=== PATIENT | male | born 2000 | race Caucasian/White ===

== ENCOUNTER 2021-04-17 08:52 | Emergency (ER) | payer OTHER, SELFPAY ==
[2021-04-17 08:54] VITALS: BP 124/96; PULSE 90; RESP 16; TEMP 36.4; O2SAT 100; BMI 30.3
--- NOTE | 2021-04-17 09:09 | EDS_ITS ---
HPI History of Present Illness Chief Complaint: Abd Pain Informant: patient Onset/Context/Timing Onset: Today Current Severity: 09/05 Maximum Severity: 05/06 Narrative Narrative: Patient presents with intermittent right upper quadrant pain. Has had a total of 5 episodes, most recent being this morning. Today's episode lasted approximately 5 hours and is currently significantly improved. Patient states he will get sudden sharp squeezing pain in the right upper quadrant. He has nausea but no vomiting. No fever or chills. He has never been worked up for this previously. [facility] Medical History Migraines Home Medications rizatriptan 10 mg PO X1 PRN 04/17/21 [History Last Taken Unknown] Allergy/AdvReac Type Severity Reaction Status Date / Time No Known Allergies Allergy Verified 04/17/21 08:54 Social History Smoking Status: Never smoker ROS ROS ED Constitutional Constitutional ED: Denies chills or fever(s) Eyes Eyes: Denies change in vision ENT ENT ED: Denies sore throat Cardiovascular Cardiovascular: Denies chest pain Respiratory/Chest Respiratory/Chest: Denies cough or dyspnea Gastrointestinal Gastrointestinal: Reports abdominal pain and nausea; Denies diarrhea or vomiting Genitourinary Genitourinary ED: Denies dysuria Musculoskeletal Musculoskeletal: Denies back pain Integumentary Denies rash Neurologic Neurologic: Denies headache(s) or weakness Psychiatric Psychiatric: Denies anxiety or depression Allergic/Immunologic Allergic/Immunologic ED: Denies urticaria EXAM Physical Exam Const Vital Signs: 04/17/21 08:54 Temperature 97.6 F L Temperature Source Temporal Pulse Rate 90 Respiratory Rate 16 Blood Pressure 124/96 H Blood Pressure Mean 105 Pulse Ox 100 Oxygen Delivery Method Room Air Positive well nourished and well developed General Appearance ED: well developed HEENT Reports normocephalic and head/scalp atraumatic Eyes PERRL and EOMs intact bilaterally Neck supple Chest Wall inspection of chest normal and palpation of chest normal Resp normal respiratory effort and clear to auscultation bilaterally Cardio regular rate and regular rhythm GI Palpation: soft and tender RUQ (Minimal tenderness right upper quadrant. No guarding or rebound.) Extremity normal to inspection Neuro oriented x3 and no sensory deficits noted Sensorium / Orientation: alert Motor Exam: strength 5/5 throughout Psych mental status grossly normal Skin no rashes or lesions noted MDM MDM MDM Narrative Medical decision making narrative: Patient declined anything for pain while here. Lab work obtained. Lab Data Attestation: I reviewed the patient's lab results. Labs: Laboratory Results - last 24 hr 04/17/21 04/17/21 10:00 10:00 WBC 7.9 RBC 5.52 Hgb 16.1 Hct 48.2 MCV 87.3 MCH 29.2 MCHC 33.4 RDW Std Deviation 38.8 RDW Coeff of Cris 12.1 Plt Count 279 MPV 10.3 Immature Gran % (Auto) 0.300 Neut % (Auto) 68.1 Lymph % (Auto) 22.0 [place] % (Auto) 6.5 Eos % (Auto) 2.5 Baso % (Auto) 0.6 Absolute Neuts (auto) 5.4 Absolute Lymphs (auto) 1.73 Nucleated RBC % 0 Sodium 142 Potassium 3.8 Chloride 108 H Carbon Dioxide 28.0 Anion Gap 6 BUN 11 Creatinine 0.91 Estim Creat Clear Calc 147.56 Est GFR (MDRD) Af Amer 137 Est GFR (MDRD) Non-Af 113 BUN/Creatinine Ratio 12.0 Glucose 93 Calcium 9.3 Total Bilirubin 0.40 Direct Bilirubin 0.12 AST 10 L ALT 32 Alkaline Phosphatase 74 Total Protein 7.9 Albumin 4.8 Globulin 3.1 Lipase 60 L Treatment and Re-Evaluation Comments:: Labs are unremarkable and patient's pain has resolved at this time. I do not feel that CT imaging is warranted and do not expose him to radiation unnecessarily. I did speak with Dr. Giron, on-call for the patient's PCP. They will help arrange an outpatient ultrasound. Patient was given return instructions. Discharge Plan Triage Chief Complaint: Abd Pain ED Provider: Ginette Quesada Dx/Rx/DC Orders Clinical Impression: Abdominal pain Instructions: ED Abdominal Pain Unkn Cause Male... Prescriptions: No Action rizatriptan 10 mg tablet 10 mg PO X1 PRN (Reason: Headache) RF: 0 Primary Care Provider: Jonny Smith Referrals: Jonny Smith MD [Primary Care Provider] - 1-2 Weeks Disposition Disposition: Home, Self Care
[2021-04-17 10:12] LABS: Absolute Lymphocyte Count 1.73 X10^3/uL (0.83-4.51); Absolute Neutrophil Count 5.4 X10^3/uL (2.0-7.7); Basophil# 0.05 X10^3/uL; Basophil% 0.6 % (0-1); Eosinophils% 2.5 % (0-5); Hematocrit 48.2 % (40-54); Hemoglobin 16.1 g/dL (13.0-16.5); Lymphocyte # 1.73 X10^3/ul (0.83-4.51); Mean Corp Hgb Conc 33.4 g/dL (32-36); Mean Corpuscular Hgb 29.2 pg (27.0-32.0); Mean Corpuscular Volume 87.3 fL (80-94); Mean Platelet Vol. 10.3 fl (6.2-12.0); Monocyte# 0.51 X10^3/uL; Monocyte% 6.5 % (0-10); NRBC Flagged by Analyzer 0 % (0-5); Neutrophil # 5.35 X10^3/uL (2.7-7.7); Neutrophil % 68.1 % (47-70); Platelet Count 279 K/mm3 (150-450); RBC Distribution Width CV 12.1 % (11.6-14.6); RBC Distribution Width SD 38.8 fl (35.1-43.9); Red Blood Count 5.52 M/mm3 (4.6-6.2); White Blood Count 7.9 K/mm3 (4.4-11.0)
[2021-04-17 10:26] LABS: AST(SGOT) 10 U/L (15-37); Alanine Aminotransfer ALT/SGPT 32 U/L (16-61); Albumin, Serum 4.8 g/dL (3.2-5.0); Alkaline Phosphatase 74 U/L (45-117); Anion Gap 6 (5-15); BUN 11 mg/dL (7-18); Bilirubin, Direct 0.12 mg/dL (0.00-0.30); Calcium,Total 9.3 mg/dL (8.5-10.1); Chloride 108 mmol/L (98-107); Creatinine, Serum 0.91 mg/dL (0.70-1.30); EST Glomerular Filtration Rate 113 mL/min (>60); Est Glom Filt Rate - Afr Amer 137 mL/min (>60); Estimated Creatinine Clearance 147.56 ml/min; Globulin 3.1 g/dL (2.2-4.2); Glucose 93 mg/dL (74-106); Lipase 60 U/L (73-393); Potassium 3.8 mmol/L (3.5-5.1); Protein, Total 7.9 g/dL (6.4-8.2); Sodium Level 142 mmol/L (136-145)
[2021-04-17 12:01] VITALS: PULSE 88; RESP 17; O2SAT 100
== END 2021-04-17 12:02 | disposition home or self-care (01) ==
PROVIDERS: Emergency Provider Emergency Medicine; PCP Family Medicine
DX: R10.11 Right upper quadrant pain (principal); R11.0 Nausea; G43.909 Migraine, unspecified, not intractable, without status migrainosus; Z79.899 Other long term (current) drug therapy
CPT/HCPCS: 80048; 80076; 83690; 85025; 99283; A4216

== ENCOUNTER 2022-12-25 21:05 | Emergency (ER) | payer BC, SELFPAY ==
[2022-12-25 21:06] VITALS: BP 144/95; PULSE 100; RESP 14; TEMP 36.8; O2SAT 98; BMI 31.3
--- NOTE | 2022-12-25 22:19 | CT_ITS ---
EXAM: CT ABDOMEN AND PELVIS WITH INTRAVENOUS CONTRAST CLINICAL INDICATION: pain, rlq TECHNIQUE: Helically acquired images were obtained of the abdomen and pelvis with intravenous contrast. This CT exam was performed using one or more of the following dose reduction techniques: automated exposure control, adjustment of the mA and/or kV according to patient size, and/or use of iterative reconstruction technique. CONTRAST: IV 100mL Isovue-370 COMPARISON: No relevant prior studies available. FINDINGS: LOWER THORAX: Unremarkable. Lung bases are clear. No cardiomegaly. No significant pericardial effusion. ABDOMEN: LIVER: Unremarkable. Homogeneous. No focal mass. GALLBLADDER AND BILE DUCTS: Unremarkable. No calcified gallstones. No gallbladder distention or wall edema. No intra- or extrahepatic biliary ductal dilation. PANCREAS: Unremarkable. No focal cystic or solid mass. SPLEEN: Unremarkable. Normal size without focal cystic or solid mass. ADRENALS: Unremarkable. No nodules. KIDNEYS AND URETERS: Unremarkable. Normal renal size and position. No hydronephrosis. Normal enhancement of the renal parenchyma bilaterally. STOMACH AND BOWEL: Unremarkable. No stomach or bowel distention. No focal inflammatory change. PELVIS: APPENDIX: The appendix is normal. BLADDER: Unremarkable. REPRODUCTIVE: Unremarkable as visualized. No mass. ABDOMEN and PELVIS: INTRAPERITONEAL SPACE: Unremarkable. No ascites or other fluid collection. No free air. BONES/JOINTS: Unremarkable. No suspicious lytic or blastic abnormality. SOFT TISSUES: Unremarkable. No discrete abdominal or pelvic wall hernia. VASCULATURE: Unremarkable. Abdominal aorta is non-dilated. LYMPH NODES: Unremarkable. No enlarged lymph nodes. CT/Abdomen/Pelvis W IV Cont ONLY IMPRESSION: No acute findings in the abdomen or pelvis. Electronically Signed: Perez Tang MD at 23:58 EDT ,
--- NOTE | 2022-12-25 22:20 | ED.VIS.GI ---
HPI HPI - GI History of Present Illness Chief Complaint: GI Bleed Narrative Narrative: 22-year-old male who denies significant past medical history presents with his mother because of rectal bleeding that began 3 to 4 hours ago. He had a bowel movement, then noticed bright red blood per rectum. He states that his stool was kind of loose. He states he does not take blood thinners. No recent NSAIDs or aspirin. He felt lightheaded when it happened, but that has resolved. He denies chest pain or shortness of breath. He is having lower abdominal pain, mainly on the right. No fevers or chills. No exacerbating or alleviating factors to his rectal bleeding. His mother is here and is concerned because she states his relative of rectal carcinoma. [facility] Medical History Migraines Home Medications rizatriptan 10 mg tablet 10 mg PO X1 PRN Headache 04/17/21 [History Last Taken Unknown] hydrocortisone acetate 25 mg rectal suppository (Anusol-HC) 25 mg SD DAILY #12 ea 12/25/22 [Rx Last Taken Unknown] Allergy/AdvReac Type Severity Reaction Status Date / Time No Known Allergies Allergy Verified 12/25/22 21:06 Social History Smoking Status: Never smoker ROS ROS ED ROS Narrative Constitutional: No fever, no chills. HEENT: No sore throat. No neck pain. No loss of vision. No rhinorrhea. Cardiovascular: No chest pain. No palpitations. No pedal edema. Respiratory: No cough, no shortness of breath. Abdominal: Right lower quadrant abdominal pain. No nausea. No vomiting. Bright red blood per rectum. Genitourinary: No dysuria. No hematuria. Musculoskeletal: No myalgias. No arthralgias. Neurologic: No headaches. No dizziness. No lightheadedness-resolved. Skin: No rash. No change in color. Psychiatric: No depression. No anxiety. EXAM Physical Exam Narrative Exam Narrative: Afebrile. Vital signs noted. HEENT: Normocephalic. Atraumatic. PERRL, EOMI. Neck soft and supple. No point tenderness or step off. Cardiovascular: Regular rate and rhythm. No murmurs, rubs, or gallops appreciated. Respiratory: No tachypnea. Lungs clear to auscultation bilaterally. Gastrointestinal: Abdomen soft, tenderness right lower quadrant with deep palpation, with normoactive bowel sounds. No rebound or guarding. Rectal examination declined by patient. Neurological: Awake. Alert. Nonfocal, nonlateralizing. Skin: No rash. Normal color. No pallor. Musculoskeletal: No pedal edema. Full range of motion extremities. Const Vital Signs: 12/25/22 21:06 12/25/22 23:19 Temperature 98.2 F Temperature Source Temporal Pulse Rate 100 Pulse Rate [Lying] 74 Pulse Rate [Sitting (for 1 minute prior to obtaining)] 69 Pulse Rate [Standing (for 1 minute prior to obtaining)] 94 Respiratory Rate 14 Blood Pressure 144/95 H Blood Pressure [Lying] 129/86 H Blood Pressure [Sitting (for 1 minute prior to obtaining)] 138/76 H Blood Pressure [Standing (for 1 minute prior to obtaining)] 135/69 H Blood Pressure Mean 111 Blood Pressure Mean [Lying] 100 Blood Pressure Mean [Sitting (for 1 minute prior to obtaining)] 96 Blood Pressure Mean [Standing (for 1 minute prior to obtaining)] 91 Pulse Ox 98 Oxygen Delivery Method Room Air MDM MDM MDM Narrative Medical decision making narrative: In the differential diagnosis is rectal bleeding from internal hemorrhoid versus AV malformation, versus diverticular bleed. Given his pain in the right lower quadrant, there is low concern for appendicitis based on his examination, and I do not feel that that would be the cause of his bright red blood per rectum. Orthostatics will be obtained. I will obtain a CBC to rule out profound anemia requiring transfusion, but this is also lower on the differential because of his clinical exam without pallor. With her concern for rectal carcinoma, CT will be obtained also to rule out mass. However, patient has not described thin stool recently. I reviewed the patient's laboratory work, he has a normal white count of 6.0, hemoglobin actually hemoconcentrated at 16.6 with hematocrit 49.4, platelet count normal at 295. His electrolyte panel is grossly unremarkable with a normal BUN of 9 and a creatinine of 0.98. Glucose appropriately elevated at 97 with normal anion gap of 7. Orthostatics obtained and reviewed and are negative for tachycardia or significant drop in his systolic blood pressure. I reviewed his CT imaging and see no acute process, I reviewed the radiology report. There is no evidence of acute finding, no acute infiltrate or abdominal inflammatory change, appendix appears normal, no obstruction. I do think that his rectal bleeding may be secondary to an internal hemorrhoid. He will be given a prescription for Anusol suppositories with hydrocortisone and referred to Dr. Zacarias for further work-up. I do feel that he has stable GI bleeding/rectal bleeding and can be discharged with follow-up. Return instructions to the emergency department were reviewed. Disposition is discharged home in stable condition. History & Record Review Discussion w/independent historian: Patient and Family Additional record(s) reviewed:: Prior ED visit Lab Data Attestation: I reviewed the patient's lab results. Labs: Laboratory Results - last 24 hr 12/25/22 12/25/22 22:42 22:42 WBC 6.0 RBC 5.57 Hgb 16.6 H Hct 49.4 MCV 88.7 MCH 29.8 MCHC 33.6 RDW Std Deviation 39.3 RDW Coeff of Cris 12.0 Plt Count 295 MPV 10.8 Immature Gran % (Auto) 0.300 Neut % (Auto) 48.6 Lymph % (Auto) 40.4 [place] % (Auto) 7.2 Eos % (Auto) 2.8 Baso % (Auto) 0.7 Absolute Neuts (auto) 2.9 Absolute Lymphs (auto) 2.41 Nucleated RBC % 0 Sodium 140 Potassium 4.3 Chloride 107 Carbon Dioxide 26.0 Anion Gap 7 BUN 9 Creatinine 0.98 Estim Creat Clear Calc 134.75 Est GFR (MDRD) Af Amer 124 Est GFR (MDRD) Non-Af 102 BUN/Creatinine Ratio 9.2 L Glucose 97 Calcium 9.3 Total Bilirubin 0.30 AST 15 ALT 46 Alkaline Phosphatase 68 Total Protein 7.6 Albumin 4.5 Globulin 3.1 Albumin/Globulin Ratio 1.5 Radiography Diagnostic Testing: Clinical Impression(s) from Imaging Studies Abdomen/Pelvis CT 12/25/22 22:19 IMPRESSION: No acute findings in the abdomen or pelvis. Electronically Signed: Perez Tang MD at 23:58 EDT , Discharge Plan Triage Chief Complaint: GI Bleed ED Provider: Neymar Chan Dx/Rx/DC Orders Clinical Impression: Acute lower GI bleeding, Abdominal pain Instructions: ED Lower GI Bleeding (Stable) Prescriptions: New hydrocortisone acetate [Anusol-HC] 25 mg suppository 25 mg SD DAILY Qty: 12 0RF No Action rizatriptan 10 mg tablet 10 mg PO X1 PRN (Reason: Headache) Label Comments: take 1 tablet by mouth AT ONSET OF HEADACHE may repeat ONCE in 2 hours IF headache PERSISTS Primary Care Provider: Jonny Smith Referrals: Jeremy Zacarias DO [Med Staff - Active Staff] - As soon as possible Jonny Smith MD [[facility]] - Activity Restrictions/Additional Instructions: Return with increased bleeding, new or worsening symptoms. Disposition Disposition: Home, Self Care
[2022-12-25] MEDS: 0.9% Normal Saline 1,000 ML 1000 ML IV (22:41)
[2022-12-25 23:12] LABS: ALB/GLOB Ratio 1.5 RATIO (0.9-2.4); AST(SGOT) 15 U/L (15-37); Alanine Aminotransfer ALT/SGPT 46 U/L (16-61); Albumin, Serum 4.5 g/dL (3.2-5.0); Alkaline Phosphatase 68 U/L (45-117); Anion Gap 7 (5-15); BUN 9 mg/dL (7-18); BUN/Creat Ratio 9.2 RATIO (10-20); Calcium,Total 9.3 mg/dL (8.5-10.1); Chloride 107 mmol/L (98-107); Creatinine, Serum 0.98 mg/dL (0.70-1.30); EST Glomerular Filtration Rate 102 mL/min (>60); Est Glom Filt Rate - Afr Amer 124 mL/min (>60); Estimated Creatinine Clearance 134.75 ml/min; Globulin 3.1 g/dL (2.2-4.2); Glucose 97 mg/dL (74-106); Potassium 4.3 mmol/L (3.5-5.1); Protein, Total 7.6 g/dL (6.4-8.2); Sodium Level 140 mmol/L (136-145)
[2022-12-25 23:15] LABS: Absolute Lymphocyte Count 2.41 X10^3/uL (0.83-4.51); Absolute Neutrophil Count 2.9 X10^3/uL (2.0-7.7); Basophil# 0.04 X10^3/uL; Basophil% 0.7 % (0-1); Eosinophil# 0.17 X10^3/uL; Eosinophils% 2.8 % (0-5); Hematocrit 49.4 % (40-54); Hemoglobin 16.6 g/dL (13.0-16.5); Lymphocyte # 2.41 X10^3/ul (0.83-4.51); Lymphocyte % 40.4 % (19-41); Mean Corp Hgb Conc 33.6 g/dL (32-36); Mean Corpuscular Hgb 29.8 pg (27.0-32.0); Mean Corpuscular Volume 88.7 fL (80-94); Mean Platelet Vol. 10.8 fl (6.2-12.0); Monocyte# 0.43 X10^3/uL; Monocyte% 7.2 % (0-10); NRBC Flagged by Analyzer 0 % (0-5); Neutrophil % 48.6 % (47-70); Platelet Count 295 K/mm3 (150-450); RBC Distribution Width SD 39.3 fl (35.1-43.9); Red Blood Count 5.57 M/mm3 (4.6-6.2)
[2022-12-25 23:19] VITALS: BP 129/86; BP 135/69; BP 138/76; PULSE 69; PULSE 74; PULSE 94
[2022-12-26 00:09] VITALS: BP 134/79; PULSE 68; RESP 17; O2SAT 96
== END 2022-12-26 00:10 | disposition home or self-care (01) ==
PROVIDERS: Emergency Provider Emergency Medicine; PCP Family Medicine; Visit Provider Emergency Medicine
DX: K92.2 Gastrointestinal hemorrhage, unspecified (principal); R10.31 Right lower quadrant pain
CPT/HCPCS: 74177; 80053; 85025; 96360; 99284; J7030; A4216

== ENCOUNTER 2023-12-17 06:18 | Observation (INO) | payer BC, SELFPAY ==
[2023-12-17] VITALS (10 sets, daily range): BP systolic 128–159; BP diastolic 76–98; PULSE 82–97; RESP 15–20; TEMP 36.4–36.9; O2SAT 94–99; BMI 32.3; BMI 32.1
--- NOTE | 2023-12-17 06:40 | US_ITS ---
STUDY: ABDOMINAL ULTRASOUND - RIGHT UPPER QUADRANT REASON FOR VISIT: Male, 23 years old . Right upper quadrant pain. Vomiting. TECHNIQUE: Ultrasound evaluation of the right upper quadrant was performed with real-time and static ye-scale imaging. TECHNICAL QUALITY: Adequate. COMPARISON: None. FINDINGS: Liver: The liver measures 14.9 cm. There is normal echogenicity of the liver. The bile ducts are within normal limits. There is hepatic color flow. The direction of portal flow is hepatopetal. There is no demonstrated mass lesion. Gallbladder: Normal distended gallbladder. The gallbladder wall measures 3.1 mm. There is a negative sonographic Chen''s sign. There is no pericholecystic fluid. There are multiple echogenic structures within the gallbladder, consistent with multiple gallstones. Common Bile Duct (C.B.D.): The common bile duct measures 3.7 mm. Pancreas: Normal size of the head of the pancreas. The body and tail portions were obscured with overlying bowel gas. There is normal echogenicity of the pancreas. There is no demonstrated pancreatic mass or cyst. Right Kidney: Normal size of the right kidney. The right kidney measures 11.5 cm x 5.5 cm x 5.3 cm. Normal renal cortex. The right cortex measures 2.1 cm. There is no demonstrated renal mass or cyst. There is no right hydronephrosis. US/Gallbladder IMPRESSION: Multiple gallstones. Electronically Signed: Uvaldo Ibanez MD at 8:55 EDT ,
--- NOTE | 2023-12-17 06:41 | EX.ED.DYSGE1 ---
HPI History of Present Illness Chief Complaint: Abd Pain Informant: patient Narrative Narrative: Patient is a 23-year-old male who states he was diagnosed with cholelithiasis and gallbladder polyps a few years ago. He states he follows with a general surgeon and as he only had 1 bout of biliary colic decided to not have his gallbladder removed. He states he has been doing well but last night while at rest around 10 PM he developed pain in the right upper quadrant with some radiation to the midline of his abdomen that caused nausea and 1 bout of vomiting. He states this pain feels similar nature to his previous gallbladder attack. He states the pain is lasted all night without any type of symptom improvement and secondary to his he comes in for evaluation [facility] Medical History Gall bladder polyp Gallstone Migraines Home Medications NK 12/17/23 [History Last Taken Unknown] Allergy/AdvReac Type Severity Reaction Status Date / Time Sulfa (Sulfonamide Allergy Severe Hives Verified 12/17/23 06:19 Antibiotics) Social History Smoking Status: Never smoker ROS ROS ED Constitutional Constitutional ED: Denies chills or fever(s) Eyes Eyes: Denies change in vision ENT ENT ED: Denies sore throat Cardiovascular Cardiovascular: Denies chest pain Respiratory/Chest Respiratory/Chest: Denies cough or dyspnea Gastrointestinal Gastrointestinal: Reports abdominal pain, nausea and vomiting; Denies diarrhea Genitourinary Genitourinary ED: Denies dysuria Musculoskeletal Musculoskeletal: Reports back pain; Denies myalgias Integumentary Denies rash Neurologic Neurologic: Denies headache(s) Hematologic/Lymphatic Hematologic/Lymphatic: Denies easy bleeding or easy bruising EXAM Physical Exam Const Vital Signs: 12/17/23 06:19 12/17/23 06:21 Temperature 97.7 F L 97.7 F L Temperature Source Temporal Temporal Pulse Rate 97 95 Respiratory Rate 20 H 20 H Blood Pressure 159/98 H 159/98 H Blood Pressure Mean 118 118 Pulse Ox 97 97 Oxygen Delivery Method Room Air Room Air Positive well nourished and well developed General Appearance ED: well developed; Negative for pallor HEENT Reports moist mucous membranes HEENT Narrative: No tongue or lip swelling no oral lesions no airway edema or compromise No signs of infection noted in the posterior pharynx Eyes PERRL and EOMs intact bilaterally General Eye ED: Negative for pale conjunctiva or scleral icterus Neck supple Neck Narrative: No nuchal rigidity or meningeal signs noted Resp normal respiratory effort and clear to auscultation bilaterally Cardio regular rate and regular rhythm Rate: other Other Details: Heart is regular rate and rhythm without murmurs rubs or gallops Radial and carotid pulses are equal and symmetric GI non-distended GI Narrative: Abdomen is soft and nondistended with normal active bowel sounds. There is pain on palpation in the midepigastric and right upper quadrant region but greatest in the right upper quadrant region. However Chen sign is negative No voluntary guarding or rigidity or pulsatile mass Auscultation: normoactive bowel sounds Palpation: soft Back/Spine Back/Spine Narrative: There is faint right-sided CVA pain noted Extremity normal to inspection Neuro oriented x3, CN's II-XII intact bilaterally and no sensory deficits noted Sensorium / Orientation: alert Motor Exam: strength 5/5 throughout Psych mental status grossly normal Skin no rashes or lesions noted, no wounds and skin turgor normal General Skin Exam: Negative for jaundice or pallor MDM MDM MDM Narrative Medical decision making narrative: Patient arrived to the ER hypertensive but otherwise with stable vitals. He reported pain in the right upper quadrant that came on spontaneously with radiation towards midepigastric and back region. He also reported a history of gallstones and gallbladder polyp. With this reported history and onset of pain concern is for biliary colic versus acute cholecystitis versus pancreatitis. Secondary to his basic lab work was ordered as well as a gallbladder ultrasound. Lab work showed no leukocytosis going against acute infection/acute cholecystitis. Lipase is normal going against pancreatitis and patient's liver enzymes are also normal going against severe gallbladder derangement. Gallbladder ultrasound is still pending and therefore the patient will be signed out to the day physician Dr. Franklin History & Record Review Discussion w/independent historian: Patient Lab Data Attestation: I reviewed the patient's lab results. Labs: Laboratory Results - last 24 hr 12/17/23 12/17/23 06:30 07:45 WBC 8.7 RBC 5.47 Hgb 16.3 Hct 47.8 MCV 87.4 MCH 29.8 MCHC 34.1 RDW Std Deviation 39.3 RDW Coeff of Cris 12.2 Plt Count 256 MPV 10.3 Immature Gran % (Auto) 0.500 Neut % (Auto) 74.8 H Lymph % (Auto) 17.2 L [place] % (Auto) 5.6 Eos % (Auto) 1.4 Baso % (Auto) 0.5 Absolute Neuts (auto) 6.6 Absolute Lymphs (auto) 1.50 Nucleated RBC % 0 Sodium 139 Potassium 4.0 Chloride 106 Carbon Dioxide 26.0 Anion Gap 7 BUN 10 Creatinine 1.11 Estim Creat Clear Calc 136.52 Est GFR (MDRD) Af Amer 106 Est GFR (MDRD) Non-Af 88 BUN/Creatinine Ratio 9.0 L Glucose 129 H Calcium 9.4 Total Bilirubin 0.40 Direct Bilirubin 0.16 AST 14 L ALT 48 Alkaline Phosphatase 70 Total Protein 7.4 Albumin 4.2 Globulin 3.2 Lipase 19 Urine Color Yellow Urine Clarity Clear Urine pH 6.0 Ur Specific [place] 1.025 Urine Protein 30 H Urine Glucose (UA) Normal Urine Ketones 15 H Urine Occult Blood Negative Urine Nitrite Negative Urine Bilirubin Negative Urine Urobilinogen Normal Ur Leukocyte Esterase Negative Discharge Plan Triage Chief Complaint: Abd Pain ED Provider: Simon Alba Dx/Rx/DC Orders Clinical Impression: Abdominal pain, right upper quadrant Prescriptions: No Action NK Primary Care Provider: Jonny Smith Referrals: Jonny Smith MD [Primary Care Provider] -
[2023-12-17] MEDS: 0.9% Normal Saline (1000mL) 1,000 ML 999 ML IV (06:47)
[2023-12-17] MEDS: HYDROmorphone 0.5 MG/0.5 ML SYRINGE IV (06:47)
[2023-12-17] MEDS: Ondansetron 4 MG/2 ML Vial IV ×2 (06:47→13:57)
[2023-12-17 06:48] LABS: Absolute Neutrophil Count 6.6 X10^3/uL (2.0-7.7); Basophil# 0.04 X10^3/uL; Basophil% 0.5 % (0-1); Eosinophil# 0.12 X10^3/uL; Eosinophils% 1.4 % (0-5); Hematocrit 47.8 % (40-54); Hemoglobin 16.3 g/dL (13.0-16.5); Lymphocyte % 17.2 % (19-41); Mean Corp Hgb Conc 34.1 g/dL (32-36); Mean Corpuscular Hgb 29.8 pg (27.0-32.0); Mean Corpuscular Volume 87.4 fL (80-94); Mean Platelet Vol. 10.3 fl (6.2-12.0); Monocyte# 0.49 X10^3/uL; Monocyte% 5.6 % (0-10); NRBC Flagged by Analyzer 0 % (0-5); Neutrophil # 6.55 X10^3/uL (2.7-7.7); Neutrophil % 74.8 % (47-70); Platelet Count 256 K/mm3 (150-450); RBC Distribution Width CV 12.2 % (11.6-14.6); RBC Distribution Width SD 39.3 fl (35.1-43.9); Red Blood Count 5.47 M/mm3 (4.6-6.2); White Blood Count 8.7 K/mm3 (4.4-11.0)
[2023-12-17 07:05] LABS: AST(SGOT) 14 U/L (15-37); Alanine Aminotransfer ALT/SGPT 48 U/L (16-61); Albumin, Serum 4.2 g/dL (3.2-5.0); Alkaline Phosphatase 70 U/L (45-117); Anion Gap 7 (5-15); BUN 10 mg/dL (7-18); Bilirubin, Direct 0.16 mg/dL (0.00-0.30); Calcium,Total 9.4 mg/dL (8.5-10.1); Chloride 106 mmol/L (98-107); Creatinine, Serum 1.11 mg/dL (0.70-1.30); EST Glomerular Filtration Rate 88 mL/min (>60); Est Glom Filt Rate - Afr Amer 106 mL/min (>60); Estimated Creatinine Clearance 136.52 ml/min; Globulin 3.2 g/dL (2.2-4.2); Glucose 129 mg/dL (74-106); Lipase 19 U/L (13-75); Protein, Total 7.4 g/dL (6.4-8.2); Sodium Level 139 mmol/L (136-145)
[2023-12-17 07:56] LABS: Bacteria 0 SEEN /hpf (None Seen); Mucous, Urine 0 SEEN /hpf (<or=2+); Red Blood Cells-Urine 0 SEEN /hpf (0-5); Squamous Epithelial Cells - UA 0 SEEN /hpf (0-5); White Blood Cells 0 SEEN /hpf (0-5)
[2023-12-17 08:00] LABS: Color, Urine Yellow (Yellow); Glucose, Dipstick Normal (Normal); Ketone-Dipstick 15 mg/dl (Negative); Leukocyte Esterase-Dipstick Negative /ul (Negative); Nitrite-Dipstick Negative (Negative); Occult Blood-Urine Negative /ul (Negative); Protein-Dipstick 30 mg/dl (Negative); Specific Gravity, Urine 1.025 (1.002-1.030); Urine Bilirubin Dipstick Negative (Negative); Urine Clarity Clear (Clear); Urine Urobilinogen Normal (Normal)
[2023-12-17] MEDS: HYDROmorphone 1 MG/ML Syringe IV (08:30)
--- NOTE | 2023-12-17 09:04 | CT_ITS ---
STUDY: CT ABDOMEN AND PELVIS WITHOUT CONTRAST REASON FOR EXAM: Male, 23 years old. Right upper quadrant pain. History of gallstones. RADIATION DOSAGE (If Supplied By Facility): CTDIvol = ( 13.91 ) mGy, DLP = ( 799.6 ) mGycm TECHNIQUE: Transaxial images were obtained from the dome of the diaphragm to the symphysis pubis without oral contrast, and without intravenous contrast. Sagittal and coronal images were reconstructed. Individualized dose optimization techniques were used for this CT. COMPARISON: Comparison is made with prior study dated December 25, 2022. FINDINGS: The visualized lung bases are unremarkable. The visualized portions of the heart are within normal limits. Normal liver. Questionable faintly seen gallstones. Patient has had a prior sonogram of the gallbladder with demonstration of gallstones. Normal spleen. Normal pancreas. Normal bilateral adrenal glands. Normal right kidney. Normal left kidney. There is a small hiatal hernia. Normal small intestine. There are scattered colonic diverticula consistent with diverticulosis. The appendix is visualized and appears normal. Normal abdominal aorta. Normal inferior vena cava. Normal retroperitoneum. Normal urinary bladder. Normal abdominal wall. Normal osseous structures. CT/Abdomen/Pelvis without Cont IMPRESSION: Gallstones. Electronically Signed: Uvaldo Ibanez MD at 9:52 EDT ,
--- NOTE | 2023-12-17 11:23 | PCM.HP.STD ---
HPI - General General Date of Admission: 12/17/23 Date of Service: 12/17/23 Chief Complaint: Right upper quadrant pain HPI Narrative CARA BECK, is a 23 M who presents with right upper quadrant pain radiating into his mid right back. He noted symptoms started at 10 pm last night. Patient described the pain as a sharp stabbing epigastric/right upper quadrant pain which goes straight through to his right mid back with associated nausea and vomiting. Patient notes he has had similar episodes approximately 1 year ago and a couple prior to that. He notes having a consultation with surgeon who had recommended at that time to have his gallbladder removed. He declined at that time. He denies any extensive medical history. He does not take any routine medications. He notes his only previous surgery was wisdom teeth extraction. He denies any side effects or complication from anesthesia. He denies any previous abdominal surgeries. He is a senior student in college studying Geology. [facility] Medical History Gall bladder polyp Gallstone Migraines Home Medications NK 12/17/23 [History Last Taken Unknown] Allergy/AdvReac Type Severity Reaction Status Date / Time Sulfa (Sulfonamide Allergy Severe Hives Verified 12/17/23 06:19 Antibiotics) Social History Smoking Status: Never smoker ROS Constitutional Constitutional: Reports systems reviewed and no addt'l complaints, except as documented Eyes Eyes: Reports systems reviewed and no addt'l complaints, except as documented ENT HEENT: Reports systems reviewed and no addt'l complaints, except as documented Cardiovascular Cardiovascular: Reports systems reviewed and no addt'l complaints, except as documented Respiratory/Chest Respiratory/Chest: Reports systems reviewed and no addt'l complaints, except as documented Gastrointestinal Gastrointestinal: Reports systems reviewed and no addt'l complaints, except as documented Genitourinary Genitourinary: Reports systems reviewed and no addt'l complaints, except as documented Musculoskeletal Musculoskeletal: Reports systems reviewed and no addt'l complaints, except as documented Integumentary Integumentary: Reports systems reviewed and no addt'l complaints, except as documented Neurologic Neurologic: Reports systems reviewed and no addt'l complaints, except as documented Psychiatric Psychiatric: Reports systems reviewed and no addt'l complaints, except as documented Endocrine Endocrinology: Reports systems reviewed and no addt'l complaints, except as documented Hematologic/Lymphatic Hematologic/Lymphatic: Reports systems reviewed and no addt'l complaints, except as documented Allergic/Immunologic Allergic/Immunologic: Reports systems reviewed and no addt'l complaints, except as documented Vital Signs Vital Signs Vital Signs: 12/17/23 06:19 12/17/23 06:21 12/17/23 08:18 Temperature 97.7 F L 97.7 F L 98.4 F Temperature Source Temporal Temporal Oral Pulse Rate 97 95 95 Respiratory Rate 20 H 20 H 18 Blood Pressure 159/98 H 159/98 H 143/88 H Blood Pressure Mean 118 118 106 Pulse Ox 97 97 97 Oxygen Delivery Method Room Air Room Air Room Air 12/17/23 08:21 12/17/23 09:41 Temperature 98.4 F Temperature Source Oral Pulse Rate 95 82 Respiratory Rate 18 16 Blood Pressure 143/88 H 128/77 H Blood Pressure Mean 106 94 Pulse Ox 96 94 Oxygen Delivery Method Room Air Room Air Weight Weight: 245 lb 5.992 oz Body Mass Index (BMI) 32.3 Physical Exam Const alert, oriented x3 and no apparent distress HEENT normocephalic and head/scalp atraumatic Eyes PERRL Neck full ROM Lymph Lymphatic: no lymphadenopathy noted Chest inspection of chest normal Resp normal respiratory effort and clear to auscultation bilaterally Cardio regular rate and regular rhythm GI GI Narrative: Abdomen- soft, tenderness in the right upper quadrant. Positive Chen's sign. Positive bowel sounds. no CVA tenderness Back/Spine no CVA tenderness Extremity normal to inspection Skin no rashes or lesions noted Neuro no focal motor deficits and no sensory deficits noted Psych mental status grossly normal, thought process normal, cooperative, affect normal, speech normal and activity/motor behavior normal Results Lab / Micro Data 12/17/23 06:30 12/17/23 06:30 Labs: Laboratory Results - last 24 hr 12/17/23 06:30: WBC 8.7, RBC 5.47, Hgb 16.3, Hct 47.8, MCV 87.4, MCH 29.8, MCHC 34.1, RDW Std Deviation 39.3, RDW Coeff of Cris 12.2, Plt Count 256, MPV 10.3, Immature Gran % (Auto) 0.500, Neut % (Auto) 74.8 H, Lymph % (Auto) 17.2 L, [place] % (Auto) 5.6, Eos % (Auto) 1.4, Baso % (Auto) 0.5, Absolute Neuts (auto) 6.6, Absolute Lymphs (auto) 1.50, Nucleated RBC % 0, Sodium 139, Potassium 4.0, Chloride 106, Carbon Dioxide 26.0, Anion Gap 7, BUN 10, Creatinine 1.11, Estim Creat Clear Calc 136.52, Est GFR (MDRD) Af Amer 106, Est GFR (MDRD) Non-Af 88, BUN/Creatinine Ratio 9.0 L, Glucose 129 H, Calcium 9.4, Total Bilirubin 0.40, Direct Bilirubin 0.16, AST 14 L, ALT 48, Alkaline Phosphatase 70, Total Protein 7.4, Albumin 4.2, Globulin 3.2, Lipase 19 12/17/23 07:45: Urine Color Yellow, Urine Clarity Clear, Urine pH 6.0, Ur Specific [place] 1.025, Urine Protein 30 H, Urine Glucose (UA) Normal, Urine Ketones 15 H, Urine Occult Blood Negative, Urine Nitrite Negative, Urine Bilirubin Negative, Urine Urobilinogen Normal, Ur Leukocyte Esterase Negative, Urine RBC 0 SEEN, Urine WBC 0 SEEN, Ur Squamous Epith Cells 0 SEEN, Urine Bacteria 0 SEEN, Urine Mucus 0 SEEN Imaging Radiology Impression Gallbladder Ultrasound 12/17/23 06:40 IMPRESSION: Multiple gallstones. Electronically Signed: Uvaldo Ibanez MD at 8:55 EDT , Abdomen/Pelvis CT 12/17/23 09:04 IMPRESSION: Gallstones. Electronically Signed: Uvaldo Ibanez MD at 9:52 EDT , Assessment & Plan Assessment/Plan (1) Abdominal pain, right upper quadrant: (2) Biliary colic: (3) Cholelithiasis: QUALIFIERS: Cholelithiasis location: gallbladder Cholecystitis presence: with cholecystitis Cholecystitis acuity: acute and chronic Biliary obstruction: without biliary obstruction Qualified Code(s): K80.12 - Calculus of gallbladder with acute and chronic cholecystitis without obstruction PLAN: Plan I am seeing this patient in conjunction with Dr. Rosales. He will independently evaluate this patient. Patient's presenting symptoms of right upper quadrant pain radiating straight into his back are classic signs of acute cholecystitis. Patient notes that he has had numerous previous episodes with the last one being about 1 year ago. He notes being recommended to have the gallbladder removed previously and had declined. Patient notes this time the symptoms don't seem to be resolving. Patient is agreeable to be admitted and have the gallbladder removed. We will plan to admit the patient to med/surg floor for IV fluids, antibiotics and cholecystectomy tomorrow. Dr. Rosales will plan to perform a laparoscopic cholecystectomy with intraoperative cholangiogram tomorrow around 2 pm. Procedure details, risks and benefits have been explained. Patient has had the opportunity to ask and have questions answered. Patient verbally understands and agrees with the proposed plan. We will continue to monitor this patient. Thank you for allowing us to participate in this patient's care. Charges/Coding Visit Charges OBSV E&M: 37030 Observ/hosp same date L2
[2023-12-17] MEDS: Morphine 2 MG/ML Syringe IV ×2 (13:18→18:57)
[2023-12-17] MEDS: Piperacil/Tazobactam 3.375 GM in 0.9% Normal Saline (50mL MB+) 50 ML IV ×2 (13:56→21:56)
[2023-12-17] MEDS: 0.9% Normal Saline (1000mL) 1,000 ML 100 ML IV (13:56)
[2023-12-17] MEDS: oxyCODONE 5 MG Tablet PO ×2 (14:56→20:37)
[2023-12-17] MEDS: 0.9% Saline Lock 10 ML Syringe IV ×2 (20:39→23:21)
[2023-12-17] MEDS: proCHLORPERazine 10 MG/2 ML Vial IV (20:39)
[2023-12-17] MEDS: Famotidine 20 MG Tablet PO (21:04)
[2023-12-17] MEDS: Morphine 4 MG/ML Syringe IV (23:20)
[2023-12-18] VITALS (14 sets, daily range): BP systolic 119–150; BP diastolic 71–94; PULSE 76–110; RESP 16–18; TEMP 36.1–37.4; O2SAT 92–99; BMI 32.2; BMI 32.5
--- NOTE | 2023-12-18 | GALL_PTH ---
PATIENT: CARA BECK LOC: PCU U#:[id number] AGE/SX: 23/M ROOM: [facility] RE12/17/[address]: Dr. Robe Rosales MD : 2000 BED: 1 DIS: 12/18/2023 SPEC #: [id number] RECD: 12/19/23 10:21 STATUS: ANDREA MEHTA #: [id number] BRO: 12/18/23 00:[address]: Robe Rosales DEPT: SURGICAL PATHOLOGY RECD BY: Al Morel ENTERED: 12/19/23 10:21 SP TYPE: WALKER DYER DR: Dr. Jonny Smith MD Tissues: Gallbladder, NOS Procedures: Surgery Specimen Level III HEADER OPERATION: Laparoscopic, Cholecystectomy with IOC PRE-OP DIAGNOSIS: Right upper quadrant abdominal pain, biliary colic, cholelithiasis, acute cholecystitis TISSUE SUBMITTED: Gallbladder MICROSCOPIC DIAGNOSIS Gallbladder, cholecystectomy: Acute and chronic focally ulcerated cholecystitis, cholelithiasis and cholesterolosis. A benign pericystic lymph node. SJ/mr 12/20/2023 MICROSCOPIC DESCRIPTION Slides are reviewed. GROSS DESCRIPTION Received is one container labeled with the patient's name and designated gallbladder. The specimen consists of a previously partially opened gallbladder measuring 10.0 cm in length and up to 4.0 cm in diameter. Gallbladder contains small amount of hemorrhagic bile. The external surface is pink-garcia, smooth and glistening for the most part. Focally it is granular, hemorrhagic and contains cautery artifact. Present in the gallbladder and also in the container are multiple multifacted yellowish-brownish stone measuring in aggregate 7.0 x 6.0x 2.0cm. and 0.5to 1.5cm in greatest dimension. The mucosa is bile-stained and without any mass lesions. The gallbladder wall measures up to 0.5 cm in thickness. The mucosa also shows several yellowish streaks consistent with cholesterolosis. Also, present closest duct is an ovoid nodule. Possible lymph node measuring 1.0cm in greatest dimension. [employer] sections from the gallbladder, the cystic duct and entire lymph node are submitted in two cassettes. / SJ: 12/19/2023 TC:2 CPT: 24062
[2023-12-18] MEDS: 0.9% Normal Saline (1000mL) 1,000 ML 100 ML IV (03:06)
[2023-12-18] MEDS: Acetaminophen 325 MG Tablet 650 MG PO ×2 (03:13→16:35)
[2023-12-18] MEDS: oxyCODONE 5 MG Tablet PO ×4 (03:17→20:37)
[2023-12-18] MEDS: Piperacil/Tazobactam 3.375 GM in 0.9% Normal Saline (50mL MB+) 50 ML IV ×2 (05:42→14:05)
--- NOTE | 2023-12-18 05:55 | EKG12_ITS ---
Test Reason : PRE-OP Blood Pressure : / mmHG Vent. Rate : 109 BPM Atrial Rate : 109 BPM P-R Int : 148 ms QRS Dur : 086 ms QT Int : 322 ms P-R-T Axes : 051 040 036 degrees QTc Int : 433 ms Sinus tachycardia Otherwise normal ECG No previous ECGs available Confirmed by MARILYN CALDERÓN, BUTCH ([id number]), editor in chief newspaper HUA ANDRADE ([id number]) on 12/24/2023 1:48:07 PM Referred By: Confirmed By:JENNIFER SANDERS MD
[2023-12-18] MEDS: 0.9% Saline Lock 10 ML Syringe IV (06:56)
[2023-12-18] MEDS: Morphine 4 MG/ML Syringe IV (06:56)
[2023-12-18 07:47] LABS: ALB/GLOB Ratio 1.2 RATIO (0.9-2.4); AST(SGOT) 16 U/L (15-37); Alanine Aminotransfer ALT/SGPT 41 U/L (16-61); Albumin, Serum 3.7 g/dL (3.2-5.0); Alkaline Phosphatase 64 U/L (45-117); Anion Gap 6 (5-15); BUN 9 mg/dL (7-18); BUN/Creat Ratio 8.6 RATIO (10-20); Calcium,Total 8.4 mg/dL (8.5-10.1); Chloride 106 mmol/L (98-107); Creatinine, Serum 1.05 mg/dL (0.70-1.30); EST Glomerular Filtration Rate 94 mL/min (>60); Est Glom Filt Rate - Afr Amer 113 mL/min (>60); Estimated Creatinine Clearance 144.75 ml/min; Glucose 112 mg/dL (74-106); Potassium 3.6 mmol/L (3.5-5.1); Protein, Total 6.7 g/dL (6.4-8.2); Sodium Level 138 mmol/L (136-145)
[2023-12-18 08:22] LABS: Absolute Lymphocyte Count 1.28 X10^3/uL (0.83-4.51); Basophil# 0.04 X10^3/uL; Basophil% 0.4 % (0-1); Eosinophils% 1.1 % (0-5); Hematocrit 45.5 % (40-54); Hemoglobin 15.1 g/dL (13.0-16.5); Lymphocyte # 1.28 X10^3/ul (0.83-4.51); Lymphocyte % 13.5 % (19-41); Mean Corp Hgb Conc 33.2 g/dL (32-36); Mean Corpuscular Hgb 29.3 pg (27.0-32.0); Mean Corpuscular Volume 88.2 fL (80-94); Mean Platelet Vol. 10.9 fl (6.2-12.0); Monocyte# 0.99 X10^3/uL; Monocyte% 10.4 % (0-10); NRBC Flagged by Analyzer 0 % (0-5); Neutrophil # 7.03 X10^3/uL (2.7-7.7); Neutrophil % 74.2 % (47-70); Platelet Count 236 K/mm3 (150-450); RBC Distribution Width CV 12.3 % (11.6-14.6); RBC Distribution Width SD 40.1 fl (35.1-43.9); Red Blood Count 5.16 M/mm3 (4.6-6.2); White Blood Count 9.5 K/mm3 (4.4-11.0)
--- NOTE | 2023-12-18 08:36 | PCM.PN.SRG ---
Subjective Subjective Patient reports he is not having any abdominal pain this morning. He did have some nausea overnight but he said the Pepcid helped as well. Objective Data Objective Data Vital Signs: Vital Signs Temp Pulse Resp BP Pulse Ox O2 Del Method 98.7 F 95 16 144/88 H 95 Room Air 12/18/23 06:40 12/18/23 06:40 12/18/23 06:40 12/18/23 06:40 12/18/23 06:40 12/18/23 06:40 Oxygen Delivery Method Room Air Weight: 246 lb 14.684 oz Body Mass Index (BMI) 32.5 Intake & Output: Intake and Output for Last 24 Hours 12/16/23 12/17/23 12/18/23 23:59 23:59 23:59 Intake Total 1690 / 2190 1450 / 1450 Balance 1690 / 2190 1450 / 1450 Lab / Micro Data 12/18/23 06:30 12/18/23 06:30 Labs: Laboratory Results - last 24 hr 12/18/23 06:30: WBC 9.5, RBC 5.16, Hgb 15.1, Hct 45.5, MCV 88.2, MCH 29.3, MCHC 33.2, RDW Std Deviation 40.1, RDW Coeff of Cris 12.3, Plt Count 236, MPV 10.9, Immature Gran % (Auto) 0.400, Neut % (Auto) 74.2 H, Lymph % (Auto) 13.5 L, [place] % (Auto) 10.4 H, Eos % (Auto) 1.1, Baso % (Auto) 0.4, Absolute Neuts (auto) 7.0, Absolute Lymphs (auto) 1.28, Nucleated RBC % 0, Sodium 138, Potassium 3.6, Chloride 106, Carbon Dioxide 26.0, Anion Gap 6, BUN 9, Creatinine 1.05, Estim Creat Clear Calc 144.75, Est GFR (MDRD) Af Amer 113, Est GFR (MDRD) Non-Af 94, BUN/Creatinine Ratio 8.6 L, Glucose 112 H, Calcium 8.4 L, Total Bilirubin 1.30 H, AST 16, ALT 41, Alkaline Phosphatase 64, Total Protein 6.7, Albumin 3.7, Globulin 3.0, Albumin/Globulin Ratio 1.2 Radiography Diagnostic Testing: Radiology Impression Gallbladder Ultrasound 12/17/23 06:40 IMPRESSION: Multiple gallstones. Electronically Signed: Uvaldo Ibanez MD at 8:55 EDT , Abdomen/Pelvis CT 12/17/23 09:04 IMPRESSION: Gallstones. Electronically Signed: Uvaldo Ibanez MD at 9:52 EDT , Physical Exam Const oriented x3 and no apparent distress Resp normal respiratory effort GI soft to palpation and non-tender Assessment & Plan Assessment/Plan (1) Cholelithiasis: QUALIFIERS: Cholelithiasis location: gallbladder Cholecystitis presence: with cholecystitis Cholecystitis acuity: acute and chronic Biliary obstruction: without biliary obstruction Qualified Code(s): K80.12 - Calculus of gallbladder with acute and chronic cholecystitis without obstruction PLAN: Patient has symptomatic cholelithiasis and thus why he was admitted. There was concern for possible early acute cholecystitis. He says his pain is resolved but he still has a lot of gallstones and I am suspicious that one of the may have passed into his common duct as his bilirubin is slightly elevated this morning. Plan for laparoscopic cholecystectomy with cholangiograms early afternoon. I discussed the procedure in detail with the patient. I discussed the risks, benefits, and alternatives of the procedure. I discussed the risks including but not limited to bleeding, infection, injury to surrounding organs such as the liver, bile duct, bowels. I did discuss the possibility of having to convert to an open procedure as well as the possibility that if any injuries occurred this may necessitate further surgery at a tertiary care center. Robe Rosales MD Pager: [facility] [address] [place] [address], [address] [place] [address] Office:
[2023-12-18] MEDS: Lactated Ringers 1,000 ML 15 ML IV (13:02)
--- NOTE | 2023-12-18 13:30 | RAD_ITS ---
STUDY: INTRAOPERATIVE CHOLANGIOGRAM. REASON FOR EXAM: Male, 23 years old. Laparoscopic cholecystectomy. FLUOROSCOPY TIME (if supplied): ( 6.3 seconds ) minutes/seconds. 2.54 mGy. TECHNIQUE: An intraoperative cholangiogram was performed by the surgeon. Imaging was submitted. COMPARISON: None. FINDINGS: The visualized intra and extrahepatic biliary ducts are unremarkable. No intraluminal filling defect is seen. There is free flow of contrast into the duodenum. RAD/Cholangiogram/ O R,Initial IMPRESSION: Unremarkable intraoperative cholangiogram. Electronically Signed: Uvaldo Ibanez MD at 14:52 EDT ,
[2023-12-18] MEDS: Bupivacaine Mpf 0.5% 30 ML VIAL (14:45)
--- NOTE | 2023-12-18 15:14 | PCM.OPRPT ---
Report of Operation Date of Procedure: 12/18/23 Pre-Operative Diagnosis: Acute cholecystitis Post-Operative Diagnosis: Acute cholecystitis Surgery/Procedure Performed:: Laparoscopic cholecystectomy with cholangiograms Type of Anesthesia: General/Regional Specimen's removed: Gallbladder Estimated Blood Loss (mL): 10 Description of Procedure: After obtaining informed consent patient was brought back to the operating room. General anesthesia was induced. The abdomen was prepped and draped in usual sterile fashion. A small midline incision was made superior to the umbilicus and deepened to the level of fascia. The fascia was elevated and incised. Next the peritoneum was elevated and incised in the same fashion. Finger sweep was performed and the Vanegas trocar was placed into the abdomen. The balloon was inflated. The abdomen was inflated to 15 mmHg. Next a camera was introduced into the abdomen and the abdomen was inspected. Next under direct visualization three 5-mm ports were placed one subxiphoid and 2 subcostal. Next the gallbladder was elevated and retracted toward the right shoulder. The peritoneum was stripped from the gallbladder. The infundibulum was located and retracted laterally. The gallbladder was very inflamed and the aspirating needle was used to decompress the gallbladder. Next the triangle of Calot was dissected and the cystic duct and cystic artery were identified. Cholangiograms were performed. The Ball clamp was used to clamp across the infundibulum and the catheter needle was inserted into the gallbladder. Under fluoroscopy contrast was instilled into the gallbladder and the common duct, cystic duct as well as proximal hepatic ducts were identified. There was good filling of the duodenum. There were no filling defects noted in the common bile duct. The clamp was removed as well as the needle and the infundibulum was grasped once more. Three hemolock clips were placed across the cystic duct. The cystic duct was then divided leaving 2 clips on the stump. The cystic artery was clipped and divided in the same fashion. The hook cautery was then used to take the gallbladder off of the gallbladder bed. Hemostasis was obtained. Gallbladder fossa was irrigated and no active bleeding or bile leakage was noted. Next the camera was introduced in the subxiphoid port. An Endopouch bag was placed through the umbilical port and the gallbladder was placed into it. The gallbladder was then removed through the umbilical incision. The camera was then reinserted through the umbilical port. The gallbladder fossa was inspected once more and noted to be hemostatic with no leaking bile. The abdomen was suctioned dry. The 5 mm ports were removed under direct visualization. The umbilical port was then removed and the air was removed from the abdomen. Next using an 0 Vicryl suture the umbilical fascia was closed in a [id number] fashion. The umbilical port site was irrigated local anesthetic was administered to all the incisions. All the incisions were closed with interrupted subcuticular 4-0 Monocryl sutures followed by Steri-Strips and dressings. The patient was awoken and taken to PACU in stable condition. Admit VTE Documentation VTE Mechan Device Prophylaxis: SCD's
--- NOTE | 2023-12-18 15:17 | DS.PCM_ITS ---
Providers Date of Admission: 12/17/23 Primary Care Physician: Dr. Jonny Smith MD Reason For Visit: ABDOMINAL PAIN, CHOLELITHIASIS, BILARY COLIC Diagnosis Discharge Diagnosis (1) Cholelithiasis: Status: Acute Code(s): K80.20 - Calculus of gallbladder without cholecystitis without obstruction Qualifiers: Cholelithiasis location: gallbladder Cholecystitis presence: with cholecystitis Cholecystitis acuity: acute and chronic Biliary obstruction: without biliary obstruction Qualified Code(s): K80.12 - Calculus of gallbladder with acute and chronic cholecystitis without obstruction Plan: Patient has symptomatic cholelithiasis and thus why he was admitted. There was concern for possible early acute cholecystitis. He says his pain is resolved but he still has a lot of gallstones and I am suspicious that one of the may have passed into his common duct as his bilirubin is slightly elevated this morning. Plan for laparoscopic cholecystectomy with cholangiograms early afternoon. I discussed the procedure in detail with the patient. I discussed the risks, benefits, and alternatives of the procedure. I discussed the risks including but not limited to bleeding, infection, injury to surrounding organs such as the liver, bile duct, bowels. I did discuss the possibility of having to convert to an open procedure as well as the possibility that if any injuries occurred this may necessitate further surgery at a tertiary care center. Robe Rosales MD Pager: [facility] [address] [place] [address], [address] [place] [address] Office: (2) Acute cholecystitis: Status: Acute Code(s): K81.0 - Acute cholecystitis Medications at Discharge Home Medications NK 12/17/23 acetaminophen 325 mg tablet 650 mg (2 x 325 mg) PO Q6H PRN PRN Pain 1-10 Or Fever >100.7 #0 tabs 12/18/23 oxycodone 5 mg tablet 5 mg PO Q4H PRN PRN Pain Score 4-10 5 days #20 tabs 12/18/23 Hospital Course Operations cholecystecomy Procedures None Summary of Care Provided Hospital Course: The patient was admitted with right upper quadrant pain and cholelithiasis. He was started on antibiotics and the following day he was taken for laparoscopic cholecystectomy. Cholecystectomy revealed very inflamed gallbladder with a lot of stones. Cholangiograms were normal. After the gallbladder was removed he will be started on diet and if he tolerates diet to be discharged home. Weight / BMI Weight Weight: 246 lb 14.684 oz Body Mass Index (BMI) 32.5 ABG / Lab / Microbiology Data 12/18/23 06:30 12/18/23 06:30 Laboratory: Laboratory Results - last 24 hr 12/18/23 06:30: WBC 9.5, RBC 5.16, Hgb 15.1, Hct 45.5, MCV 88.2, MCH 29.3, MCHC 33.2, RDW Std Deviation 40.1, RDW Coeff of Cris 12.3, Plt Count 236, MPV 10.9, Immature Gran % (Auto) 0.400, Neut % (Auto) 74.2 H, Lymph % (Auto) 13.5 L, [place] % (Auto) 10.4 H, Eos % (Auto) 1.1, Baso % (Auto) 0.4, Absolute Neuts (auto) 7.0, Absolute Lymphs (auto) 1.28, Nucleated RBC % 0, Sodium 138, Potassium 3.6, Chloride 106, Carbon Dioxide 26.0, Anion Gap 6, BUN 9, Creatinine 1.05, Estim Creat Clear Calc 144.75, Est GFR (MDRD) Af Amer 113, Est GFR (MDRD) Non-Af 94, BUN/Creatinine Ratio 8.6 L, Glucose 112 H, Calcium 8.4 L, Total Bilirubin 1.30 H , AST 16, ALT 41, Alkaline Phosphatase 64, Total Protein 6.7, Albumin 3.7, Globulin 3.0, Albumin/Globulin Ratio 1.2 Radiography Diagnostic Testing: Radiology Impression Cholangiogram 12/18/23 13:30 IMPRESSION: Unremarkable intraoperative cholangiogram. Electronically Signed: Uvaldo Ibanez MD at 14:52 EDT , D/C Instructions Discharge Diet: Light diet - advance as tolerated Discharge Activity: May Not Drive (for 2-3 days or while taking narcotic pain medications.) and - (Do not drive, work heavy equipment or sign legal documents for 24 hours.) May shower in (days): 1 Lifting Restrictions: 20 lbs for 2 weeks Additional Activity Instructions: Pain medication may cause nausea. You should typically eat light foods as you take your pain medications. Pain medication may also cause constipation. If this is a problem for you, please discuss with your doctor. Call your doctor if your incision/area has: Continuous Slow Oozing, Sudden Increased Bleeding, Increased Pain/ Swelling, Increased Redness and Foul Smelling Discharge Call your doctor if you observe: Fever of 101 or Higher Suture Line Care: Avoid Pulling/Pushing and Avoid Pinching/Bending Remove Dressing in: 2 days Additional Dressing/Incision Instructions: Leave operative bandaids on for 2 days. When you remove dressing, leave Steri-Strips on until your follow-up ap pointment, or until the Steri-Strips fall off on their own. Please Follow Up With: Robe Rosales MD When: Please call to schedule 2 week follow up appointment. [phone] Meaningful Use Info Meaningful Use Meaningful Use Diagnoses (Choose all that apply): None applicable Ischemic Stroke Statin Dosing Therapy Reference: STATIN DOSE THERAPY REFERENCE: * Patients > 75 years receive moderate or high dose statin therapy. * Patients 75 years or YOUNGER should receive HIGH intensity statin dose unless contraindicated. You will be required to document reason for non-treatment if statin daily dose does not meet guidelines. HIGH DOSE STATIN THERAPY DAILY Atorvastatin > than or = to 40 mg Rosuvastatin > than or = to 20 mg Amlodipine + Atorvastatin > than or = to 2.5/40 mg Ezetimibe + Simvastatin 10/80 mg Simvastatin 80mg Discharge Plan Admission Admit Date/Time: 12/17/23 11:12 Attending Provider: Robe Rosales Primary Care Provider: Jonny Smith Discharge Orders/Prescriptions Prescriptions: New acetaminophen 325 mg Tablet 650 mg PO Q6H PRN PRN (Reason: Pain 1-10 Or Fever >100.7) Qty: 0 0RF oxycodone 5 mg Tablet 5 mg PO Q4H PRN PRN (Reason: Pain Score 4-10) 5 Days Qty: 20 0RF No Action NK Referrals / Follow Up: Jonny Smith MD [Primary Care Provider] - Disposition Disposition (needs filled in before D/C Order can be placed): Home, Self Care
[2023-12-18] MEDS: Morphine 2 MG/ML Syringe IV (17:37)
--- NOTE | 2023-12-18 22:22 | NURSING ---
Discharge instructions were given pt states understanding, iv site removed. Discussed prescriptions for oxycodone and tylenol as well as follow up with dr christine in 2 weeks. pt voiced understanding of not driving while taking oxycodone. pt and family states understanding.
== END 2023-12-18 21:56 | disposition home or self-care (01) ==
LOC: ED 10:31 → PCU 11:17
PROVIDERS: Physician Assistant; Admitting Provider Surgery; Emergency Provider Emergency Medicine; PCP Family Medicine; Visit Provider Surgery
PROC: (CPT 47610; principal; 2023-12-18 12:40)
DX: K80.12 Calculus of gallbladder with acute and chronic cholecystitis without obstruction (principal); K21.9 Gastro-esophageal reflux disease without esophagitis
CPT/HCPCS: 47563; 00790; 36415; 74176; 74300; 76000; 76705; 80048; 80053; 80076; 81001; 83690; 85025; 88304; 93005; 94668; 96361; 96365; 96366; 96375; 96376; 99221; 99284; J7030; J7120; A4216; G0378; J2405